=== PATIENT | female | born 1960 | race Caucasian/White ===

== ENCOUNTER 2020-10-15 13:42 | Emergency (ER) | payer OTHER | END 2020-10-15 15:19 | disposition home or self-care (01) | LOC: ER1 13:42 | DX: S20.211A Contusion of right front wall of thorax, initial encounter (principal); J44.9 Chronic obstructive pulmonary disease, unspecified; V43.52XA Car driver injured in collision with other type car in traffic accident, initial encounter; Y92.410 Unspecified street and highway as the place of occurrence of the external cause | CPT/HCPCS: 71111; 99284 ==

== ENCOUNTER 2020-10-25 14:06 | Emergency (ER) | payer OTHER ==
[2020-10-25 15:33] LABS: HEMOGLOBIN 12.4 gm/dl (12.3-15.3); RED BLOOD COUNT 3.8 M/UL (4.00-5.10)
[2020-10-25 15:52] LABS: BUN/CREATININE RATIO 26 (0-10)
[2020-10-25] MEDS ORDERED: IBUPROFEN400 MG PO (18:52)
== END 2020-10-25 19:18 | disposition home or self-care (01) ==
LOC: ER1 14:06
PROVIDERS: Physician Assistant Medical
DX: S30.1XXA Contusion of abdominal wall, initial encounter (principal); S20.211A Contusion of right front wall of thorax, initial encounter; R91.1 Solitary pulmonary nodule; J44.9 Chronic obstructive pulmonary disease, unspecified; F17.200 Nicotine dependence, unspecified, uncomplicated; X58.XXXA Exposure to other specified factors, initial encounter
CPT/HCPCS: 71046; 80053; 81001; 84484; 85025; 93005; 99284; Q9967